=== PATIENT | male | born 1945 | race Caucasian/White ===

== ENCOUNTER → 2017-07-04 | Outpatient (REF) ==
[~2017-07-04] MED LIST: ASPIRIN 81M81 MG/TA2 PO; LIPITOR 80MG80 MG PO; MASON NATURAL1200 MG PO; NEURONTIN300 MG/CAP PO; NITROSTAT0.4 MG/TAB SL; PLAVIX 75MG TAB75 MG PO; PRILOSEC 20MG20 MG PO; SLO-NIACIN500 MG PO; TOPROL XL100 MG PO; ZESTRIL 20MG TA20 MG PO; ZOCOR 40MG40 MG PO; ZOLOFT 100MG100 MG PO
== END ==
LOC: ZLAB.WCH 18:10
DX: Z01.89 Encounter for other specified special examinations (principal)

== ENCOUNTER 2017-07-30 12:28 | Emergency (ER) | payer MEDICARE, BC ==
[~2017-07-30] VITALS: Ht 167.6 cm; Wt 105.0 kg
[2017-07-30 12:30] VITALS: BP 150/73; TEMP 97.9
[2017-07-30] MEDS ORDERED: FLOMAX 0.40.4 MG/CAP PO (12:50)
[2017-07-30 13:33] LABS: BASO # 0.1 (0.0-0.2); BASO % 0.9 % (0.0-2.0); EOS # 2.4 (0.0-0.7); EOS % 22.2 % (0-4.0); GRAN % 54.9 % (42.2-75.2); HEMATOCRIT 47.4 % (42.0-52.0); HEMOGLOBIN 15.5 g/dl (13.5-18.0); LYMPH # 1.6 (1.2-3.4); LYMPH % 14.8 % (20.0-51.0); MEAN CELL VOLUME 85 fl (80.0-100.0); MEAN CORPUSCULAR HEMOGLOBIN 28 pg (27.0-31.0); MEAN CORPUSCULAR HGB CONC 33 g/dl (33.0-37.0); MEAN PLATELET VOLUME 8.8 fl (7.4-10.4); MONO # 0.7 (0.1-0.6); MONO % 6.4 % (1.7-9.3); PLATELET COUNT 273 K/mm3 (130-400); RED BLOOD COUNT 5.58 M/mm3 (4.20-5.60); REDCELL DISTRIBUTION WIDTH-CV 14.4 % (11.5-14.5)
[2017-07-30 13:49] LABS: ALBUMIN 3.9 gm/dL (3.5-5.0); BILIRUBIN,TOTAL 0.5 mg/dL (0.0-1.0); C-REACTIVE PROTEIN 3.8 mg/dL (0.0-0.9); CALCIUM 9.4 mg/dL (8.4-10.2); CREATININE, serum 0.86 mg/dL (0.66-1.25); POTASSIUM 4.2 mmol/L (3.4-5.0)
[2017-07-30 14:45] LABS: COLLECTION METHOD CLEAN CATCH
[2017-07-30 14:51] LABS: PH 6 (5-8); SQUAMOUS EPITHELIAL None Seen /hpf; URINE APPEARANCE Clear; URINE BACTERIA None Seen /hpf; URINE BILIRUBIN Negative (NEGATIVE); URINE BLOOD Negative (NEGATIVE); URINE COLOR Yellow; URINE GLUCOSE Negative (NEGATIVE); URINE KETONE Negative (NEGATIVE); URINE LEUKOCYTE ESTERASE Negative (NEGATIVE); URINE NITRATE Negative (NEGATIVE); URINE PROTEIN(semi-quant) Negative (NEGATIVE); URINE RBC None Seen /hpf
[2017-07-30] MEDS ORDERED: AUGMENTIN XR 101 TER PO (16:07)
[2017-07-30 16:24] VITALS: PULSE 61
== END 2017-07-30 16:26 | disposition home or self-care (01) ==
LOC: COL.ER 12:28
PROVIDERS: Emergency Medicine
DX: K57.92 Diverticulitis of intestine, part unspecified, without perforation or abscess without bleeding (principal); I25.10 Atherosclerotic heart disease of native coronary artery without angina pectoris; Z95.5 Presence of coronary angioplasty implant and graft
CPT/HCPCS: J3010; J7030; Q9967

== ENCOUNTER 2018-05-30 09:51 | Observation (INO) | payer MEDICARE, BC ==
[2018-05-30] VITALS (21 sets, daily range): BP systolic 89–132; BP diastolic 53–81; PULSE 50–60; TEMP 97.5–97.8; O2SAT 96–99
[~2018-05-30] VITALS: Ht 167.7 cm; Wt 100.0 kg
[~2018-05-30 09:51] MED LIST changes: +AUGMENTIN XR 101 TER PO; +FLOMAX 0.40.4 MG/CAP PO
[2018-05-30 10:28] LABS: MEAN CELL VOLUME 86 fl (80.0-100.0); MEAN CORPUSCULAR HEMOGLOBIN 29 pg (27.0-31.0); MEAN CORPUSCULAR HGB CONC 33 g/dl (33.0-37.0); PLATELET COUNT 232 K/mm3 (130-400); RED BLOOD COUNT 5.96 M/mm3 (4.20-5.60); REDCELL DISTRIBUTION WIDTH-CV 13.8 % (11.5-14.5)
[2018-05-30 10:29] LABS: INR 0.9 (0.8-3.0); PROTHROMBIN TIME 10.3 SECONDS (9.7-12.8)
[2018-05-30 10:37] LABS: CALCIUM 9.3 mg/dL (8.4-10.2); CREATININE, serum 1.11 mg/dL (0.66-1.25); POTASSIUM 4.9 mmol/L (3.4-5.0)
[2018-05-30] MEDS ORDERED: VITAMIN FLUSH-F1 CAP PO (11:11)
[2018-05-31] VITALS: BP 125/65; PULSE 59; TEMP 97.8
[2018-05-31 04:00] VITALS: BP 121/63; PULSE 57; TEMP 97.8
[2018-05-31 07:03] LABS: BASO # 0.1 (0.0-0.2); BASO % 0.5 % (0.0-2.0); EOS # 0.3 (0.0-0.7); EOS % 2.7 % (0-4.0); GRAN # 6.5 (1.4-6.5); GRAN % 67.6 % (42.2-75.2); HEMATOCRIT 48.7 % (42.0-52.0); HEMOGLOBIN 16.4 g/dl (13.5-18.0); LYMPH % 20.9 % (20.0-51.0); MEAN CELL VOLUME 85 fl (80.0-100.0); MEAN CORPUSCULAR HEMOGLOBIN 29 pg (27.0-31.0); MEAN CORPUSCULAR HGB CONC 34 g/dl (33.0-37.0); MONO # 0.8 (0.1-0.6); MONO % 7.9 % (1.7-9.3); PLATELET COUNT 216 K/mm3 (130-400); RED BLOOD COUNT 5.76 M/mm3 (4.20-5.60); REDCELL DISTRIBUTION WIDTH-CV 13.8 % (11.5-14.5)
[2018-05-31 07:21] LABS: CALCIUM 9.1 mg/dL (8.4-10.2); CREATININE, serum 0.99 mg/dL (0.66-1.25); POTASSIUM 4.5 mmol/L (3.4-5.0)
[2018-05-31 07:40] VITALS: BP 128/67; PULSE 67; TEMP 98.2
== END 2018-05-31 10:30 | disposition home or self-care (01) ==
LOC: COL.CAR 09:51 → ICU 13:57
PROVIDERS: Internal Medicine Interventional Cardiology
DX: I25.10 Atherosclerotic heart disease of native coronary artery without angina pectoris (principal); R94.39 Abnormal result of other cardiovascular function study; M19.90 Unspecified osteoarthritis, unspecified site; I10 Essential (primary) hypertension; E78.5 Hyperlipidemia, unspecified; K21.9 Gastro-esophageal reflux disease without esophagitis; F10.21 Alcohol dependence, in remission; Z95.1 Presence of aortocoronary bypass graft; Z79.82 Long term (current) use of aspirin; Z79.01 Long term (current) use of anticoagulants; Z79.02 Long term (current) use of antithrombotics/antiplatelets; Z87.891 Personal history of nicotine dependence; Z82.49 Family history of ischemic heart disease and other diseases of the circulatory system; Z88.5 Allergy status to narcotic agent; Z88.1 Allergy status to other antibiotic agents
CPT/HCPCS: C1725; C1760; C1769; C1887; C1894; C9600; G0378; G0379; J0583; J1644; J2250; J3010; Q9967

== ENCOUNTER 2019-04-07 10:13 | Day surgery (SDC) | payer MEDICARE, BC ==
[~2019-04-07] VITALS: Ht 167.6 cm; Wt 102.0 kg
[2019-04-07] VITALS (10 sets, daily range): BP systolic 111–155; BP diastolic 55–77; PULSE 56–82; TEMP 97.3–98.3
[~2019-04-07 10:13] MED LIST changes: +LOPRESSOR 550 MG/TAB PO; +PRINIVIL20 MG PO; +VITAMIN FLUSH-F1 CAP PO; -ZESTRIL 20MG TA20 MG PO
[2019-04-07 11:16] LABS: BASO # 0.1 (0.0-0.2); EOS # 0.3 (0.0-0.7); EOS % 3.3 % (0-4.0); GRAN # 5.5 (1.4-6.5); HEMATOCRIT 49.3 % (42.0-52.0); HEMOGLOBIN 16.8 g/dl (13.5-18.0); LYMPH # 2.3 (1.2-3.4); LYMPH % 25.5 % (20.0-51.0); MEAN CELL VOLUME 84 fl (80.0-100.0); MEAN CORPUSCULAR HEMOGLOBIN 29 pg (27.0-31.0); MEAN CORPUSCULAR HGB CONC 34 g/dl (33.0-37.0); MEAN PLATELET VOLUME 9.1 fl (7.4-10.4); MONO # 0.8 (0.1-0.6); MONO % 8.5 % (1.7-9.3); PLATELET COUNT 209 K/mm3 (130-400); RED BLOOD COUNT 5.84 M/mm3 (4.20-5.60); REDCELL DISTRIBUTION WIDTH-CV 13.7 % (11.5-14.5)
[2019-04-07 11:24] LABS: CALCIUM 9.2 mg/dL (8.4-10.2); CREATININE, serum 0.85 (0.66-1.25); POTASSIUM 4.6 mmol/L (3.4-5.0)
--- NOTE | 2019-04-07 16:54 | NUR ---
Patient arrives from surgery, alert and oriented. Tolerating ice chips and water. Midline incision well approximated with scant drainage from site. Patient wearing abdominal binder.
--- NOTE | 2019-04-07 19:45 | NUR ---
Pt. sitting up in bed with at bedside. Pt. is A&OX3, assessment complete. IV to rt. hand patent. Pt. reports pain at a 6 on pain scale and requests pain meds. Will give per orders. Pt. wearing abd. binder at this time. Pt. denies further needs, call light within reach.
[2019-04-08 04:43] VITALS: BP 118/65; PULSE 59; TEMP 98
--- NOTE | 2019-04-08 05:23 | NUR ---
Pt. slept well through the night. Pt. remains A&OX3. INT to rt. hand patent. Pt. denies pain or other needs at this time.
--- NOTE | 2019-04-08 07:20 | NUR ---
Lying in bed with eyes open. Rates pain in abdomen as 3/10 and feels like sore muscle. Pain increases when patient coughs. Reviewed with the patient the importance of cough and deep breathing along with using the incentive spirometer. Patient declined using incentive spirometer at this time, explains that through the night he did not use as he was tired and slept. Abdominal binder in place, bruising noted to upper abdomen. Bowel sounds active in all four quadrants, patient says that he is passing flatus, no BM at this time. Denies any nausea. in room at bedside. Patient denies any further needs at this time.
[2019-04-08 07:33] VITALS: BP 151/90; PULSE 56; TEMP 97.7
--- NOTE | 2019-04-08 08:48 | NUR ---
Sitting up on chair in room eating breakfast. Tolerating without difficulty, ate 100%. Provided morning medications to patient. Encouraged patient to use incentive spirometer and also cough and deep breath.
--- NOTE | 2019-04-08 10:25 | NUR ---
Discharge summary and onstructions reviewed with the patient and his spouse. Verbalizes understanding to all. Handwritten prescription for Ultram provided to patient and spouse. Patient will notify staff when ready to leave.
--- NOTE | 2019-04-08 10:44 | NUR ---
Patient escorted to vehicle via wheelchair by JESSICA Farmer. Spouse will be driving the patient home. Patient denied further questions or concerns.
== END 2019-04-08 10:49 | disposition home or self-care (01) ==
LOC: SDCO 10:13 → SURG 15:49 → SDCO 04-08 10:49
PROVIDERS: Surgery
DX: K43.2 Incisional hernia without obstruction or gangrene (principal); I10 Essential (primary) hypertension; F32.9 Major depressive disorder, single episode, unspecified; I25.10 Atherosclerotic heart disease of native coronary artery without angina pectoris; K21.9 Gastro-esophageal reflux disease without esophagitis; K22.70 Barrett's esophagus without dysplasia; Z95.1 Presence of aortocoronary bypass graft; Z79.899 Other long term (current) drug therapy; Z79.82 Long term (current) use of aspirin; E66.9 Obesity, unspecified; Z68.35 Body mass index [BMI] 35.0-35.9, adult; E78.5 Hyperlipidemia, unspecified; G47.33 Obstructive sleep apnea (adult) (pediatric); Z95.5 Presence of coronary angioplasty implant and graft; Z82.49 Family history of ischemic heart disease and other diseases of the circulatory system; Z88.6 Allergy status to analgesic agent; J44.9 Chronic obstructive pulmonary disease, unspecified; M19.90 Unspecified osteoarthritis, unspecified site
CPT/HCPCS: OP; A9284; C1781; J0690; J1100; J2250; J2405; J3010; J7120

== ENCOUNTER 2019-04-19 23:44 | Inpatient (IN) | payer MEDICARE, BC ==
[~2019-04-19] VITALS: Ht 167.6 cm; Wt 99.4 kg
[2019-04-20] VITALS (1127 sets, daily range): BP systolic 107–155; BP diastolic 64–96; PULSE 75–96; TEMP 98.2–98.8; O2SAT 80–100
[2019-04-20 00:16] LABS: HEMATOCRIT 46.2 % (42.0-52.0); HEMOGLOBIN 15.5 g/dl (13.5-18.0); MEAN CELL VOLUME 86 fl (80.0-100.0); MEAN CORPUSCULAR HEMOGLOBIN 29 pg (27.0-31.0); MEAN CORPUSCULAR HGB CONC 34 g/dl (33.0-37.0); PLATELET COUNT 199 K/mm3 (130-400); REDCELL DISTRIBUTION WIDTH-CV 14.5 % (11.5-14.5)
[2019-04-20 00:21] LABS: PROTHROMBIN TIME 11.7 SECONDS (9.7-12.8)
[2019-04-20 00:29] LABS: ALANINE AMINOTRANSFERASE 15 U/L (21-72); ALBUMIN 3.8 gm/dL (3.5-5.0); ALKALINE PHOSPHATASE 124 U/L (50-136); ANION GAP 11 mmol/L (7-16); AST,SGOT 25 U/L (15-37); BILIRUBIN,TOTAL 1.1 mg/dL (0.0-1.0); BLOOD UREA NITROGEN 20 mg/dL (9-20); CALCIUM 8.7 mg/dL (8.4-10.2); CARBON DIOXIDE 22 mmol/L (22-30); CHLORIDE 102 mmol/L (98-107); CREATININE, serum 0.98 (0.66-1.25); GLUCOSE 153 mg/dL (74-106); POTASSIUM 3.9 mmol/L (3.4-5.0); SODIUM 135 mmol/L (137-145); TOTAL PROTEIN 6.7 gm/dL (6.4-8.2)
[2019-04-20 00:32] LABS: EOSINOPHIL 3 % (0-4); LYMPHOCYTE 2 % (20.0-51.0); NEUTROPHILS 91 % (42.0-75.2)
[2019-04-20 00:33] LABS: PLATELET ESTIMATE NORMAL (NORMAL)
[2019-04-20 00:40] LABS: TROPONIN-I < 0.012 ng/mL (0.000-0.035)
--- NOTE | 2019-04-20 01:47 | NUR ---
Received report from ED nurseRajani.
--- NOTE | 2019-04-20 02:30 | NUR ---
Patient's personal belongings include blue jeans, a blue shirt, a pair of navy socks, and a pair of white underpants, all of which are in a patient bag within the closet of ICU room 4.
--- NOTE | 2019-04-20 04:27 | NUR ---
Patient arrived to ICU room 4 at 0212 via ED stretcher. Patient was transferred to ICU bed via turning sheet. Vitals were obtained and were within normal limits. Patient is alert and oriented x4. Patient's skin assessed; his abdomen is heavily bruised throughout with a midline incision on the upper portion of chest. Some scattered bruising noted on both arms. Patient's underpants were soiled with urine and bowel upon arrival; his bottom appeared red though the skin was intact. Patient arrived with a NS bolus hanging. Patient arrives with , Nereyda, and daughter, Annie, at the bedside. Patient denies any current pain or nausea. Dr. Garcia notified of patient's arrival.
[2019-04-20 04:49] LABS: COLLECTION METHOD CLEAN CATCH
[2019-04-20 04:54] LABS: MUCOUS Present /lpf; PH 5 (5-8); SQUAMOUS EPITHELIAL None Seen /hpf; URINE APPEARANCE Clear; URINE BACTERIA None Seen /hpf; URINE BILIRUBIN Negative (NEGATIVE); URINE BLOOD Negative (NEGATIVE); URINE COLOR Yellow; URINE GLUCOSE Negative (NEGATIVE); URINE KETONE Negative (NEGATIVE); URINE LEUKOCYTE ESTERASE Negative (NEGATIVE); URINE NITRATE Negative (NEGATIVE); URINE PROTEIN(semi-quant) Negative (NEGATIVE); URINE RBC 0-2 /hpf; URINE UROBILINOGEN Negative (NEGATIVE)
[2019-04-20 05:16] LABS: HEMATOCRIT 42.4 % (42.0-52.0); HEMOGLOBIN 13.9 g/dl (13.5-18.0); MEAN CELL VOLUME 87 fl (80.0-100.0); MEAN CORPUSCULAR HEMOGLOBIN 29 pg (27.0-31.0); MEAN CORPUSCULAR HGB CONC 33 g/dl (33.0-37.0); MEAN PLATELET VOLUME 8.8 fl (7.4-10.4); PLATELET COUNT 175 K/mm3 (130-400); RED BLOOD COUNT 4.87 M/mm3 (4.20-5.60); REDCELL DISTRIBUTION WIDTH-CV 14.6 % (11.5-14.5)
[2019-04-20 05:22] LABS: POTASSIUM 4.2 mmol/L (3.4-5.0)
[2019-04-20 05:33] LABS: LYMPHOCYTE 5 % (20.0-51.0); NEUTROPHILS 90 % (42.0-75.2); PLATELET ESTIMATE NORMAL (NORMAL)
--- NOTE | 2019-04-20 07:53 | NUR ---
GAVE BEDSIDE REPORT TO SARAH SNELL.
--- NOTE | 2019-04-20 08:15 | NUR ---
at bedside. Radha in discussing plan for possible I and D this afternoon. NPO status reiterated. Ronaldo to assess prior to finalizing procedure plans.
--- NOTE | 2019-04-20 14:25 | NUR ---
pt to ct per bed, positioned by ct staff in supine postion on ct table. Monitors applied to pt.
--- NOTE | 2019-04-20 14:53 | NUR ---
Specimen obtained and placed in specimen cup. Total of 450 mls of bloody drainage removed from abdominal wall. Drain in place and attached to accordian drain.
--- NOTE | 2019-04-20 17:51 | NUR ---
Dr Higgins updated with procedure outcome. Orders to transfer to Surgical and INT IV as patient is tolerating PO. Currently no beds are available. Patient and family updated with outcome of procedure. Plan of care. Change of status from ICU to general surgical. Questions addressed. Pts and daughter left for home following update.
[2019-04-21] VITALS (633 sets, daily range): BP systolic 99–147; BP diastolic 58–92; PULSE 63–88; TEMP 97.6–98.5; O2SAT 82–100
[2019-04-21 05:59] LABS: HEMOGLOBIN 12.2 g/dl (13.5-18.0); MEAN CELL VOLUME 87 fl (80.0-100.0); MEAN CORPUSCULAR HEMOGLOBIN 29 pg (27.0-31.0); MEAN CORPUSCULAR HGB CONC 33 g/dl (33.0-37.0); MEAN PLATELET VOLUME 8.9 fl (7.4-10.4); PLATELET COUNT 145 K/mm3 (130-400); RED BLOOD COUNT 4.21 M/mm3 (4.20-5.60); REDCELL DISTRIBUTION WIDTH-CV 14.6 % (11.5-14.5)
[2019-04-21 06:04] LABS: HEMATOCRIT 36.6 % (42.0-52.0)
[2019-04-21 06:09] LABS: CALCIUM 7.9 mg/dL (8.4-10.2); CREATININE, serum 0.87 (0.66-1.25); POTASSIUM 3.8 mmol/L (3.4-5.0)
--- NOTE | 2019-04-21 07:00 | NUR ---
RECEIVED REPORT FROM SARAH MCCAULEY. PT RESTING IN BED. PT ABLE TO TELL NURSE WHAT HE WOULD LIKE ORDERED FOR BREAKFAST. PT ON 2L VIA NC. VSS. CALL LIGHT WITHIN REACH. BEDALARM IN PLACE.
--- NOTE | 2019-04-21 08:40 | NUR ---
PT CLEANED UP AT THIS TIME R/T HAVIGN A VOIDING ACCIDENT. PT PLACED ON RA THIS TIME. DENIES ANY SHOB. CALL LIGHT WITHIN REACH. BEDALARM SET.
--- NOTE | 2019-04-21 11:30 | NUR ---
PT TO HARD CHAIR FOR 30 MINUTES AND THEN ASSISTED BACK TO BED WITH X1 ASSIST. SLOW STEADY GAIT NOTED. AT BEDSIDE. VSS. CALL LIGHT WITHIN REACH. PT DENIES LUNCH TRAY AT THIS TIME. PT STATES HE IS BELCHING A LOT AND STILL HAS SOME HEARTBURN. URINAL WITHIN REACH.
--- NOTE | 2019-04-21 14:40 | NUR ---
PHYSICAL THERAPY AT BEDSIDE TO ASSESS PT ON HOW FAR PT CAN AMBULATE.
--- NOTE | 2019-04-21 16:16 | NUR ---
OT AT BEDSIDE ASSISTING PT WITH SHAVING OF HIS FACE AND ADLs. PT COOPERATIVE WITH CARE. DAUGHTER AT BEDSIDE.
--- NOTE | 2019-04-21 18:21 | NUR ---
GAVE TELEPHONE REPORT TO SARAH LANCE. PT NOTIFIED OF TRANSFER TO [facility]. PT TO BE TRANSFERRED VIA ON RA. PORTABLE TELEMETRY IN PLACE. NO ACUTE S/S OF DISTRESS NOTED UPON TRANSFER.
--- NOTE | 2019-04-21 18:30 | NUR ---
arrived on unit per WC and assisted into bed
--- NOTE | 2019-04-21 18:35 | NUR ---
SARAH LANCE AT BEDSIDE UPON TRANSFER OF PT TO [facility]. PT ABLE TO AMUBLATE WITH STANDBY ASSIST FROM WC TO BED. SLOW STEADY GAIT NOTED. ALL PERSONAL BELONGINGS SENT WITH PT.
--- NOTE | 2019-04-21 18:50 | NUR ---
resting in bed, bedside shift report given to SARAH Hess
--- NOTE | 2019-04-21 20:00 | NUR ---
Pt resting in bed. No distress noted. Pts belonging moved to closet per request. Pt denies pain, but reports he feels geneneralized "achiness". Respirations even and unlaobred. Lungs clear. Abdomen is distended and tender. Midline incision reddened with accordian drain. Covered with tegaderm. Draining serosangenous drainage into drainage bag. BS+. RH INT is leaking. Saccrum is reddned but blanchable. Home meds reviewed. No needs noted will continue to monitor.
[2019-04-22 03:59] VITALS: BP 153/72; PULSE 74; TEMP 98.5
--- NOTE | 2019-04-22 06:00 | NUR ---
Pt resting in bed this morning. He reports that he has been "peeing all over" himself this morning. Bed dry. Acordion drain to compression- 30mL in drainage bag emptied-serosangenous. Pt has rested well and has had no complaints of pain. Up to the bathroom multiple times throughout the night- well tolerated.
[2019-04-22 06:18] LABS: HEMATOCRIT 38.2 % (42.0-52.0); HEMOGLOBIN 12.9 g/dl (13.5-18.0); MEAN CELL VOLUME 85 fl (80.0-100.0); MEAN CORPUSCULAR HEMOGLOBIN 29 pg (27.0-31.0); MEAN CORPUSCULAR HGB CONC 34 g/dl (33.0-37.0); PLATELET COUNT 171 K/mm3 (130-400); RED BLOOD COUNT 4.51 M/mm3 (4.20-5.60); REDCELL DISTRIBUTION WIDTH-CV 14.2 % (11.5-14.5)
[2019-04-22 06:32] LABS: CALCIUM 8.1 mg/dL (8.4-10.2); CREATININE, serum 0.8 (0.66-1.25); POTASSIUM 3.6 mmol/L (3.4-5.0)
--- NOTE | 2019-04-22 08:20 | NUR ---
Lying in bed. Would like to sit in chair. Patient having difficulty sitting up in the bed on own, requires assist of one in sitting up. Denies pain, says that he has a little discomfort at times in his abdomen but not pain. Accordion drain with dressing clean, dry, and intact. Small amount of bloody drainage noted in bag. Patient assisted to chair. Call light placed in reach. Patient denies any further needs.
[2019-04-22 08:37] VITALS: BP 123/74; PULSE 73; TEMP 97.9
--- NOTE | 2019-04-22 08:58 | NUR ---
Daughter, Annie, calls to check on status of patient. Per daughter, it is not uncommon for the patient to get confused, especially with the recent room change from ICU to the floor. Daughter says that the patient does have occasional incontinence as well. Daughter says that she will be in later to see patient.
[2019-04-22 12:00] VITALS: BP 132/76; PULSE 67; TEMP 98.5
--- NOTE | 2019-04-22 14:10 | NUR ---
home support worker met with patient to discuss discharge planning. Patient states he lives with his spouse and will return there upon discharge. Patient states that he is independent at home and is working with physical therapy and ambulating in the halls. Patient's primary care provider is Dr Judy Christian in [place] and patient denies difficulty obtaining his prescriptions. Patient states he has a living will and durable power of commercial real estate attorney for health care and that there are copies at the hospital. Worker left message for to dairy farmworker regarding above discharge planning.
[2019-04-22 16:18] VITALS: BP 153/77; PULSE 66; TEMP 97.7
--- NOTE | 2019-04-22 20:00 | NUR ---
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 Assessment complete. Periods of confusion-not knowing where he is or why. Re-oriented frequently and realizes hes confused and is upset with self. Re-assured this could be caused by medications. VS stable. Dressing to midline [id number]-P/D/I. Accordian drain to dependent drainage-small amount of bloody fluid. Denies pain, nausea and shortness of breath. Encouraged to use call light. Bed alarm on. Will monitor.
[2019-04-22 21:38] VITALS: BP 143/68; PULSE 69; TEMP 99
[2019-04-22 23:05] VITALS: BP 145/63; PULSE 70
[2019-04-23 04:38] VITALS: BP 157/83; PULSE 66; TEMP 98.1
--- NOTE | 2019-04-23 05:55 | NUR ---
Has had periods of confusion this shift, getting out of bed and removing clothing and opening drain spout. Re-oriented and remembers why he is here. Denies pain. Voiding. Denies nausea. Denies questions or concerns. Call light in reach bed in low position/wheels locked alarm on. Will monitor.
[2019-04-23 07:55] VITALS: BP 175/76; PULSE 78; TEMP 97.8
--- NOTE | 2019-04-23 08:23 | NUR ---
During assessment patient was able to follow all commands, explained where he was and what issues led up to him being in the hospital, and is aware that he has a drain in his abdomen. Drain in place draining small amount of bloody discharge. Abd with previous incision healing well, scabbing noted, edges well approximated. Bruising noted all over abdomen and patient explains it was due to his fall. Denies pain. Dressing covering drain clean, dry, and intact. Patient receives call from daughter on his cell phone. Daughter, Annie, then contacts the hospital and explains to this nurse that she is concerned about her father as at one moment he seems alert and oriented but then he also seems confused as well. Per the daughter, when the patient was on the phone with his this morning he told her that he did not know where he was or what was going on. Explained to the daughter that he was able to tell me where he was, what events led him to being there, and that his was out of town. Explained that he was confused through the night according to the cage shift manager nurse, but with my assessment this morning he was able to answer appropriately. Daughter asks that we mention this to Dr. Higgins when he comes in to see the patient and if there are any changes to contact her.
--- NOTE | 2019-04-23 08:43 | NUR ---
Dr. Higgins in to see patient. Updated Dr. Higgins on daughter's concerns and confusion last night. Dr. Higgins in room and assesses patient and talks with the patient. No new orders at this time. Patient sitting up in chair to eat breakfast. Call light in reach and chair alarm on. Patient denies further needs at this time.
--- NOTE | 2019-04-23 10:04 | NUR ---
Initial visit; Patient thanked Engineering Assistant for stopping and offering God's blessings. Patient also was receptive to Engineering Assistant keeping him in her prayers.
[2019-04-23 11:37] VITALS: BP 155/77; PULSE 61; TEMP 98.1
--- NOTE | 2019-04-23 11:58 | NUR ---
Lying in bed. Daughter at bedside. Patient denies pain. Drain intact with small amount of bloody discharge in bag, recently drained. Patient says that he is not hungry at this time but will order lunch in a little bit. Patient denies further needs.
[2019-04-23 17:04] VITALS: BP 155/64; PULSE 65; TEMP 97.9
--- NOTE | 2019-04-23 17:45 | NUR ---
Dr. Higgins calls to check on patient day. Explained that the patient did not seem to be confused and answered appropriately through out the day. Dr. Higgins speaks with patient's daughter via telephone as she was here visitin the patient. Patient lying in bed with eyes open. Connell ordered for supper. Patient denies any further needs or concerns at this time. Patient daughter spoke with SARAH Gooden, and she will look into what allergy medication the patient takes normally as he is complaining of itchy eyes. When she finds out he name of the medication she will call the desk and speak with the nurse to let them know so they can ask the provider if the medication can be ordered.
[2019-04-23 19:51] VITALS: BP 151/72; PULSE 71; TEMP 98.9
--- NOTE | 2019-04-23 20:17 | NUR ---
PT AWAKE, ALERT, OX4, REPORTS FEELING ITCHY TO HIS EYES, STATES THIS IS D/T THE PLASTICCOVERINGS ON THE PILLOWS. sTATES FAMILY IS BRINGING HIS EYE GTTS TOMORROW. OFFERED PT TYLENOL AT THIS TIME, STATES HE WOULD LIKE TO TRY THAT. PT DENIES ANY OTHER PAIN, OTHER ISSUES. DRAIN INTACT TO ABDOMEN, INCISION DRY AND EDGES WELL APPROXIMATED. BED EXIT ALARM ACTIVATED. CALL LIGHT WITHIN REACH.
[2019-04-24] VITALS: BP 154/69; PULSE 63; TEMP 98.4
[2019-04-24 04:00] VITALS: BP 154/72; PULSE 63; TEMP 97.9
--- NOTE | 2019-04-24 07:07 | NUR ---
PT HAS HAD A GOOD NIGHT, SLEPT THROUGH THE NIGHT. PT DENIES PAIN TO ABDOMEN, REPORTS HAVING ITCHY EYES D/T ALLERGIES. PROVIDED PT WITH A COOL WET CLOTH FOR EYES AND THIS HAS SEEMED TO HELP HIM. DRAIN TO ABDOMEN IS DRAINING SMALL AMOUNT OF BLOODY DRAINAGE. SITE IS CDI. BED EXIT ALARM ACTIVATED AND CALL LIGHT WITHIN REACH.
[2019-04-24 07:41] VITALS: BP 154/77; PULSE 66; TEMP 98.3
--- NOTE | 2019-04-24 08:00 | NUR ---
Patient in bed resting. Alert and oriented x 3. Shift assessment complete. Daughter at bedside. Accordian drain with serosanguinous drainage present in bag. Denies pain at this time. INT to right forarm. Patient up to restroom with stand by assist. Denies further needs at this time.
--- NOTE | 2019-04-24 09:38 | NUR ---
The patient is to discharge home today, 04/24. SW presented the IM form to the patient. The patient understood and signed the form. Original was placed in the chart a copy was provided to the patient. SW revisited the discharge plan to go home with family support. The patient and his daughter were in agreeance. There are no additional needs at this time.
--- NOTE | 2019-04-24 10:45 | NUR ---
sterile dressing change to drain site. MIDline ABD incision approximately 4 inches. edges clean, dry, intact. abscess drain to left of incision, intact. drsg sterile 4x4 with tegaderm applied.
--- NOTE | 2019-04-24 10:52 | NUR ---
Discharge instructions provided to patient. Educated patient and daughter on signs and symptoms of infection and when to call provider. Patient has follow up appointment with Dr. Higgins on Saturday. Educated patient on drain care. All questions answered. Patient out by wheelchair with surgical staff and daughter.
== END 2019-04-24 10:50 | disposition home or self-care (01) | DRG 921 ==
LOC: COL.ER 23:44 → ICU 04-20 01:24 → SURG 04-21 18:22
PROVIDERS: Emergency Medicine; Surgery; ADMIT Surgery
PROC: 0W9F3ZZ Drainage of Abdominal Wall, Percutaneous Approach (ICD-10-PCS; principal; 2019-04-20)
DX: L76.32 Postprocedural hematoma of skin and subcutaneous tissue following other procedure (principal); Y83.8 Other surgical procedures as the cause of abnormal reaction of the patient, or of later complication, without mention of misadventure at the time of the procedure; I25.10 Atherosclerotic heart disease of native coronary artery without angina pectoris; K21.9 Gastro-esophageal reflux disease without esophagitis; B96.1 Klebsiella pneumoniae [K. pneumoniae] as the cause of diseases classified elsewhere; I10 Essential (primary) hypertension; R41.0 Disorientation, unspecified; Z95.1 Presence of aortocoronary bypass graft; Z96.651 Presence of right artificial knee joint; Z87.891 Personal history of nicotine dependence; Z88.6 Allergy status to analgesic agent; Z88.1 Allergy status to other antibiotic agents
CPT/HCPCS: J0692; J1170; J2250; J2405; J2543; J3010; J7030; Q9967

== ENCOUNTER 2020-09-07 09:58 | Emergency (ER) | payer MEDICARE, BC ==
[~2020-09-07] VITALS: Ht 167.6 cm; Wt 99.1 kg
[2020-09-07 10:03] VITALS: TEMP 97.8
[2020-09-07 10:20] LABS: BASO # 0.1 (0.0-0.2); BASO % 0.6 % (0.0-2.0); EOS # 0.4 (0.0-0.7); GRAN # 4.7 (1.4-6.5); GRAN % 58.1 % (42.2-75.2); HEMOGLOBIN 16.7 g/dl (13.5-18.0); LYMPH % 25.4 % (20.0-51.0); MEAN CELL VOLUME 85 fl (80.0-100.0); MEAN CORPUSCULAR HEMOGLOBIN 28 pg (27.0-31.0); MEAN CORPUSCULAR HGB CONC 33 g/dl (33.0-37.0); MONO # 0.8 (0.1-0.6); MONO % 10.5 % (1.7-9.3); PLATELET COUNT 184 K/mm3 (130-400); RED BLOOD COUNT 5.89 M/mm3 (4.20-5.60); REDCELL DISTRIBUTION WIDTH-CV 13.5 % (11.5-14.5)
[2020-09-07 10:35] LABS: BILIRUBIN,TOTAL 1.6 mg/dL (0.0-1.0); CREATININE, serum 0.89 (0.66-1.25); POTASSIUM 4.1 mmol/L (3.4-5.0); TOTAL PROTEIN 6.8 gm/dL (6.4-8.2)
[2020-09-07 11:29] LABS: COLLECTION METHOD CLEAN CATCH
[2020-09-07 11:34] LABS: MUCOUS Present /lpf; PH 5 (5-8); SQUAMOUS EPITHELIAL None Seen /hpf; URINE APPEARANCE Clear; URINE BACTERIA None Seen /hpf; URINE BILIRUBIN Negative (NEGATIVE); URINE BLOOD Negative (NEGATIVE); URINE COLOR Yellow; URINE GLUCOSE Negative (NEGATIVE); URINE KETONE Negative (NEGATIVE); URINE LEUKOCYTE ESTERASE Negative (NEGATIVE); URINE NITRATE Negative (NEGATIVE); URINE PROTEIN(semi-quant) Negative (NEGATIVE); URINE RBC 0-2 /hpf; URINE UROBILINOGEN Negative (NEGATIVE)
[2020-09-07 11:40] VITALS: BP 123/72; PULSE 72
== END 2020-09-07 12:00 | disposition home or self-care (01) ==
LOC: COL.ER 09:58
PROVIDERS: Emergency Medicine
DX: R10.31 Right lower quadrant pain (principal); R19.5 Other fecal abnormalities; Z88.8 Allergy status to other drugs, medicaments and biological substances; Z88.6 Allergy status to analgesic agent; Z79.82 Long term (current) use of aspirin; Z79.02 Long term (current) use of antithrombotics/antiplatelets
CPT/HCPCS: J1885; J2405; J7030; Q9967

== ENCOUNTER 2022-11-02 13:50 | Emergency (ER) | payer MEDICARE, BC ==
[~2022-11-02] VITALS: Ht 167.6 cm; Wt 85.9 kg
[2022-11-02 16:39] VITALS: BP 158/68; PULSE 57
== END 2022-11-02 16:41 | disposition home or self-care (01) ==
LOC: COL.ER 13:50
DX: M54.2 Cervicalgia (principal); M54.9 Dorsalgia, unspecified; M25.552 Pain in left hip; Z28.310 Unvaccinated for COVID-19; W18.30XA Fall on same level, unspecified, initial encounter; Y92.121 Bathroom in nursing home as the place of occurrence of the external cause